=== PATIENT | female | born 1995 | race Caucasian/White ===

== ENCOUNTER 2022-08-17 07:33 | Emergency (ER) | payer SELFPAY ==
[~2022-08-17] VITALS: Ht 162.6 cm; Wt 49.9 kg
--- NOTE | 2022-08-17 08:12 | NUR ---
Pt arrived with c/o RL abdominal pain radiating to her back, rated 6/10. Pt stated that she had episode of diarrhea 3 days ago, with n/v. LMP was 07/26 per pt. No hematuria noted, denies dysuria. Seen by [facility] for MSE.
[2022-08-17 08:14] LABS: *BILIRUBIN,URIN NEGATIVE (NEGATIVE); *BLOOD, URINE NEGATIVE (NEGATIVE); *CLARITY,URINE CLEAR (CLEAR); *COLOR,URINE YELLOW (YELLOW); *KETONES,URINE NEGATIVE (NEGATIVE); *UROBILINOGEN,URINE 0.2 E.U./dl (NORMAL); LEUKOCYTE ESTERASE ,URINE NEGATIVE (NEGATIVE); NITRITE, URINE NEGATIVE (NEGATIVE); PH,URINE 5.5 (5.0-8.0); UGLUCOSE NEGATIVE (NEGATIVE)
--- NOTE | 2022-08-17 08:20 | NUR ---
Pt refused to have saline lock d/t not having medical insurance. Was offered emergency [facility] but is not qualified. made aware.
[2022-08-17 08:23] LABS: HEMATOCRIT 39.1 % (31.2-41.9); MEAN CORPUSCULAR HEMOGLOBIN 31.2 uug (24.7-32.8); MEAN CORPUSCULAR VOLUME 89.3 fL (75.5-95.3); PLATELET COUNT (AUTO) 225 K/uL (179-408)
[2022-08-17 08:26] LABS: *URINE HCG, QUAL NEGATIVE (NEGATIVE)
[2022-08-17 08:38] LABS: POTASSIUM 3.5 mmol/L (3.5-5.1)
[2022-08-17 08:39] LABS: CREATININE 0.8 mg/dL (0.6-1.3)
--- NOTE | 2022-08-17 09:36 | NUR ---
Pt asked for copies of her lab results, decided not to proceed with the ultrasound, pt stated she "wanted to rule out appendicitis based on WBC count". made aware. Pt signed AMA paper and received discharge instructions. Pt and company verbalized understanding. Pt left in stable condition. Explained that if it gets worse, they can come back or go to the nearest hospital.
[2022-08-17 09:47] VITALS: BP 124/78
== END 2022-08-17 09:30 | disposition left against medical advice (07) ==
LOC: ER 07:38
DX: R10.31 Right lower quadrant pain (principal); Z53.29 Procedure and treatment not carried out because of patient's decision for other reasons; N80.9 Endometriosis, unspecified
CPT/HCPCS: 36415; 84703; 85025; A4663